=== PATIENT | male | born 1950 | race African-American/Black ===

== ENCOUNTER 2023-04-25 08:02 | Emergency (ER) | payer MEDICARE, MEDICAID ==
[~2023-04-25] VITALS: Ht 175.3 cm; Wt 73.0 kg
[2023-04-25 08:13] VITALS: BP 187/84; PULSE 98; RESP 18; TEMP 98; O2SAT 100
[2023-04-25 08:38] LABS: BASOPHILS % 0.4 % (0.0-2.0); DIFFERENTIAL COMMENT 0; EOSINOPHILS % 0.6 % (0.0-5.0); HEMATOCRIT. 38.4 % (42.0-52.0); HEMOGLOBIN. 12.7 g/dL (14.0-18.0); LYMPHOCYTES % 31.1 % (20.0-50.0); MEAN CORPUSCULAR HEMOGLOBIN 24.6 pg (28.0-32.0); MEAN CORPUSCULAR HGB CONC 33.2 g/dL (31.0-37.0); MEAN CORPUSCULAR VOLUME 74.2 fL (80.0-94.0); MEAN PLATELET VOLUME 7.5 fl (7.4-10.4); MONOCYTES % 10.9 % (2.0-8.0); PLATELET 256 x1000/uL (130-400); RED BLOOD CELL COUNT 5.17 mill/uL (4.7-6.1); RED CELL DISTRIBUTION WIDTH 14.6 % (11.6-14.6); WHITE BLOOD COUNT 3.9 x1000/uL (4.5-11.0)
[2023-04-25 09:26] LABS: ALANINE AMINOTRANSFERASE 31 IU/L (10-49); ALBUMIN 4.4 g/dL (3.2-4.8); ASPARTATE AMINOTRANSFERASE 25 IU/L (<34); BILIRUBIN TOTAL 0.5 mg/dL (0.1-1.0); CALCIUM 9.6 mg/dL (8.7-10.4); CARBON DIOXIDE 25 mEq/L (21-32); CHLORIDE 102 mEq/L (98-107); GLUCOSE 159 mg/dL (70-105); POTASSIUM 3.8 mEq/L (3.5-5.1); PROTEIN TOTAL 7.2 g/dL (6.0-8.3); SODIUM 135 mEq/L (136-145); TROPONIN I HIGH SENSITIVITY 6 ng/L (3.0-53); UREA NITROGEN BLOOD 8 mg/dL (9-23)
[2023-04-25 13:17] LABS: T4 FREE 1.39 ng/dL (0.89-1.76); THYROID STIMULATING HORMONE 2.14 uIU/mL (0.55-4.78)
== END 2023-04-25 13:05 | disposition home or self-care (01) ==
LOC: ER 08:25
DX: R00.2 Palpitations (principal)
CPT/HCPCS: 36415; 71045; 80053; 83880; 84439; 84443; 84481; 84484; 85025; 93005; 99285

== ENCOUNTER 2025-04-27 08:14 | Emergency (ER) | payer MEDICARE, OTHER ==
[~2025-04-27] VITALS: Ht 175.3 cm; Wt 77.0 kg
[2025-04-27] MEDS: PREDNISONE 20MG TABLET PO ONE (09:00)
[2025-04-27] MEDS ORDERED: ALBU18HF2 IH (09:35)
[2025-04-27] MEDS ORDERED: P20 PO (09:35)
[2025-04-27] MEDS: ALBUTEROL (0.083%) 2.5MG/3ML NEB HHN ONE (09:51)
[2025-04-27 09:52] VITALS: PULSE 68; RESP 18; O2SAT 98
[2025-04-27] MEDS: IPRATROPIUM BROMIDE (0.02%) 0.5MG/2.5ML NEB HHN ONE (09:52)
[2025-04-27 10:04] VITALS: BP 129/78; PULSE 75; RESP 17; TEMP 36.7; O2SAT 99
== END 2025-04-27 10:06 | disposition home or self-care (01) ==
LOC: ER 09:29
DX: R05.9 Cough, unspecified (principal); R09.81 Nasal congestion; I25.2 Old myocardial infarction; Z79.52 Long term (current) use of systemic steroids
CPT/HCPCS: 99283; 71045; 94640; J7512; 94070; 94664